=== PATIENT | female | born 1995 | race Caucasian/White ===

== ENCOUNTER 2017-06-29 18:07 | Emergency (ER) | payer MEDICAID ==
[2017-06-29 18:26] LABS: BASOPHILS 0.2 % (0-2); EOSINOPHILS 0.4 % (0-7); HEMATOCRIT 38.3 % (36.0-48.0); IMMATURE GRANULOCYTES 0.3 % (0-5); LYMPHOCYTES 29.7 % (15-50); MCH 29.7 pg (26.0-34.0); MCHC 33.9 g/dL (31.0-37.0); MCV 87.6 fL (80.0-100.0); MEAN PLATELET VOLUME 10.2 fL (7.4-10.4); MONOCYTES 6.1 % (2-11); NEUTROPHILS 63.3 % (40-80); PLATELET COUNT 239 10x3/uL (130-400); RBC 4.37 10x6/uL (4.00-5.40); RDW 12.3 % (11.5-14.5); WBC 10.7 10x3/uL (4.8-10.8)
== END 2017-06-29 20:18 | disposition home or self-care (01) ==
LOC: D.ER 18:07
PROVIDERS: Emergency Medicine
DX: O26.891 Other specified pregnancy related conditions, first trimester (principal); Z3A.09 9 weeks gestation of pregnancy; K64.8 Other hemorrhoids; K59.00 Constipation, unspecified; R11.2 Nausea with vomiting, unspecified

== ENCOUNTER 2017-07-22 17:49 | Emergency (ER) | payer MEDICAID ==
[2017-07-22 19:28] LABS: BASOPHILS 0.3 % (0-2); EOSINOPHILS 0.7 % (0-7); HEMATOCRIT 32.5 % (36.0-48.0); HEMOGLOBIN 11.3 g/dL (12-16); IMMATURE GRANULOCYTES 0.7 % (0-5); LYMPHOCYTES 23.5 % (15-50); MCH 30.1 pg (26.0-34.0); MCHC 34.8 g/dL (31.0-37.0); MCV 86.4 fL (80.0-100.0); MEAN PLATELET VOLUME 9.9 fL (7.4-10.4); MONOCYTES 9.1 % (2-11); NEUTROPHILS 65.7 % (40-80); PLATELET COUNT 193 10x3/uL (130-400); RBC 3.76 10x6/uL (4.00-5.40); RDW 12.5 % (11.5-14.5); WBC 7.5 10x3/uL (4.8-10.8)
[2017-07-22 19:41] LABS: APPEARANCE CLEAR (CLEAR); BILIRUBIN NEGATIVE (NEGATIVE); COLOR YELLOW (YELLOW); GLUCOSE NEGATIVE (NEGATIVE); KETONE MODERATE mg/dL (NEGATIVE); NITRITE NEGATIVE (NEGATIVE); PROTEIN NEGATIVE (NEGATIVE); UROBILINOGEN NORMAL (NORMAL)
[2017-07-22 19:42] LABS: BACTERIA MODERATE /hpf (NONE SEEN); EPITHELIAL CELLS 0-5 /hpf (0-5); RED CELLS - URINE OCC /hpf (0-5); WHITE CELLS - URINE 0-5 /hpf (0-5)
[2017-07-22 20:07] LABS: ALBUMIN 3.2 g/dL (3.4-5.0); ALKALINE PHOSPHATASE 65 U/L (46-116); ALT (SGPT) 11 U/L (10-68); BILIRUBIN - TOTAL 0.28 mg/dL (0.2-1.3); CALC OSMOLALITY 266 mosm/kg (275-300); CALCIUM 8.9 mg/dL (8.5-10.1); CARBON DIOXIDE 26.5 mmol/L (21.0-32.0); CHLORIDE - SERUM 101 mmol/L (98-107); CREATININE - SERUM 0.4 mg/dL (0.6-1.3); GLUCOSE 84 mg/dL (74-106); POTASSIUM - SERUM 3.4 mmol/L (3.5-5.1); PROTEIN - SERUM 6.6 g/dL (6.4-8.2); SODIUM 135 mmol/L (136-145); UREA NITROGEN 7 mg/dL (7-18); eGFR NON AFRICAN AMERICAN > 90 mL/min (90-120)
[2017-07-22 20:30] LABS: HCG - QUANTITATIVE (MATERNAL) 50712 mIU/mL
== END 2017-07-22 21:40 | disposition home or self-care (01) ==
LOC: D.ER 17:49
PROVIDERS: Family Medicine
DX: O21.9 Vomiting of pregnancy, unspecified (principal); Z3A.13 13 weeks gestation of pregnancy

== ENCOUNTER 2017-09-15 00:30 | Outpatient (CLI) | payer MEDICAID ==
[2017-09-15 01:22] LABS: APPEARANCE CLEAR (CLEAR); BILIRUBIN NEGATIVE (NEGATIVE); COLOR YELLOW (YELLOW); GLUCOSE NEGATIVE (NEGATIVE); KETONE SMALL mg/dL (NEGATIVE); NITRITE NEGATIVE (NEGATIVE); PROTEIN NEGATIVE (NEGATIVE); SPECIFIC GRAVITY 1.015 (1.005-1.020); UROBILINOGEN NORMAL (NORMAL)
[2017-09-15 01:23] LABS: BASOPHILS 0.1 % (0-2); EOSINOPHILS 0.2 % (0-7); HEMATOCRIT 30.9 % (36.0-48.0); HEMOGLOBIN 10.3 g/dL (12-16); IMMATURE GRANULOCYTES 0.5 % (0-5); LYMPHOCYTES 9.4 % (15-50); MCHC 33.3 g/dL (31.0-37.0); MCV 90.1 fL (80.0-100.0); MEAN PLATELET VOLUME 10.4 fL (7.4-10.4); MONOCYTES 5.5 % (2-11); NEUTROPHILS 84.3 % (40-80); PLATELET COUNT 206 10x3/uL (130-400); RBC 3.43 10x6/uL (4.00-5.40); RDW 13.1 % (11.5-14.5); WBC 14.3 10x3/uL (4.8-10.8)
[2017-09-15 01:35] LABS: ALKALINE PHOSPHATASE 60 U/L (46-116); ALT (SGPT) 10 U/L (10-68); AMYLASE - SERUM 38 U/L (25-115); BILIRUBIN - TOTAL 0.23 mg/dL (0.2-1.3); CALC OSMOLALITY 270 mosm/kg (275-300); CALCIUM 8.2 mg/dL (8.5-10.1); CHLORIDE - SERUM 104 mmol/L (98-107); CREATININE - SERUM 0.5 mg/dL (0.6-1.3); GLUCOSE 101 mg/dL (74-106); LIPASE 98 U/L (73-393); POTASSIUM - SERUM 3.4 mmol/L (3.5-5.1); PROTEIN - SERUM 6.5 g/dL (6.4-8.2); SODIUM 136 mmol/L (136-145); UREA NITROGEN 9 mg/dL (7-18); eGFR NON AFRICAN AMERICAN > 90 mL/min (90-120)
[2017-09-15 13:26] LABS: APPEARANCE CLEAR (CLEAR); BILIRUBIN NEGATIVE (NEGATIVE); COLOR YELLOW (YELLOW); GLUCOSE NEGATIVE (NEGATIVE); KETONE MODERATE mg/dL (NEGATIVE); NITRITE NEGATIVE (NEGATIVE); PROTEIN NEGATIVE (NEGATIVE); SPECIFIC GRAVITY 1.015 (1.005-1.020); UROBILINOGEN NORMAL (NORMAL)
[2017-09-15] MEDS ORDERED: PRENATAL COMPLE1 TAB PO (13:40)
== END 2017-09-15 16:02 | disposition home or self-care (01) ==
LOC: OBSVTIME → D.OPS 00:30 → D.ER 00:30 → D.LD 06:34 → D.ER 06:34 → OBSVTIME 06:34 → EDSTATUS 13:14 → D.OPS 16:02 → D.LD 16:02
PROVIDERS: Family Medicine; Obstetrics & Gynecology
DX: O21.8 Other vomiting complicating pregnancy (principal); R19.7 Diarrhea, unspecified

== ENCOUNTER 2017-09-22 17:46 | Outpatient (CLI) | payer MEDICAID ==
[~2017-09-22 17:46] MED LIST: PRENATAL COMPLE1 TAB PO
[2017-09-22 18:33] LABS: APPEARANCE CLEAR (CLEAR); BILIRUBIN NEGATIVE (NEGATIVE); COLOR YELLOW (YELLOW); GLUCOSE NEGATIVE (NEGATIVE); KETONE NEGATIVE (NEGATIVE); NITRITE NEGATIVE (NEGATIVE); PROTEIN NEGATIVE (NEGATIVE); UROBILINOGEN NORMAL (NORMAL)
[2017-09-22 19:55] LABS: BASOPHILS 0.2 % (0-2); EOSINOPHILS 0.3 % (0-7); HEMATOCRIT 28.8 % (36.0-48.0); HEMOGLOBIN 9.5 g/dL (12-16); IMMATURE GRANULOCYTES 0.7 % (0-5); LYMPHOCYTES 22.1 % (15-50); MCH 29.9 pg (26.0-34.0); MCV 90.6 fL (80.0-100.0); MEAN PLATELET VOLUME 10.3 fL (7.4-10.4); MONOCYTES 6.1 % (2-11); NEUTROPHILS 70.6 % (40-80); PLATELET COUNT 210 10x3/uL (130-400); RBC 3.18 10x6/uL (4.00-5.40); RDW 12.8 % (11.5-14.5); WBC 11.4 10x3/uL (4.8-10.8)
== END 2017-09-22 20:23 | disposition home or self-care (01) ==
LOC: D.LDO 17:46
PROVIDERS: Obstetrics & Gynecology
DX: O26.892 Other specified pregnancy related conditions, second trimester (principal); Z3A.22 22 weeks gestation of pregnancy; R10.9 Unspecified abdominal pain

== ENCOUNTER → 2018-01-16 22:36 | Outpatient (CLI) | payer MEDICAID ==
[~2018-01-16 22:36] MED LIST changes: +BUTALB-APAP-CA1 EACH PO; +CIPRO500 MG PO; +CLEOCIN HCL300 MG PO; +MACROBID100 MG PO; +TORADOL10 MG PO
[2018-02-01 21:21] VITALS: BMI 21.8
== END | disposition home or self-care (01) ==
LOC: D.LDO 22:36
DX: O26.893 Other specified pregnancy related conditions, third trimester (principal); Z3A.38 38 weeks gestation of pregnancy

== ENCOUNTER 2018-01-20 19:49 | Inpatient (IN) | payer MEDICAID ==
[~2018-01-20] VITALS: Ht 162.6 cm; Wt 68.2 kg
--- NOTE | ~2018-01-20 | DS ---
PATIENT:SAGRARIO HO :89 MEDICAL RECORD: [id number] DISCHARGE SUMMARY ADMISSION DATE: 01/20/18 DISCHARGE DATE: 01/23/18 DATE OF ADMISSION: 01/20/2018 DATE OF DISCHARGE: 01/23/2018 ADMISSION DIAGNOSIS: at term. DISCHARGE DIAGNOSIS: Mother delivered at term. PROCEDURE: Induction of labor with vaginal delivery. ATTENDING: Laurent Toro MD HISTORY OF PRESENT ILLNESS AND INDICATION FOR DELIVERY: Please see the H&P in the chart. SUMMARY OF HOSPITALIZATION: The patient was admitted to the hospital and underwent induction of labor with successful vaginal delivery. The patient is doing well at the time of discharge with scant to moderate lochia. The uterus was firm and below the umbilicus. Standard precautions have been reviewed and she will follow up in 6 weeks. TRANSINT:[id number] Voice Confirmation ID: [id number] DOCUMENT ID: [id number] LAURENT TORO MD at 0722 CC: [id number] DICTATION DATE: 01/23/18 07 GEAR STRAIGHTENER: 01/23/18 1016 DIS IN 01/23/18 [facility] [address] [place] [address]
--- NOTE | ~2018-01-20 | OP ---
PATIENT NAME: SAGRARIO HO MEDICAL RECORD: [id number] :89 LOCATION:[id number] ADMISSION DATE:01/20/18 SURGEON: LAURENT TORO MD DATE OF OPERATION: 01/21/2018 PREDELIVERY DIAGNOSIS: at term. POSTDELIVERY DIAGNOSIS: Mother delivered at term. PROCEDURE: Induction of labor with vaginal delivery. ATTENDING: Laurent Toro MD ANESTHETIC: Continuous lumbar epidural. FINDINGS: Viable male infant, vertex presentation, Apgars 9 and 9, weight 8 pounds 2 ounces. Placenta spontaneous and intact. Second degree laceration of the perineal body repaired with 3-0 Vicryl for the deep layers and 2-0 chromic. A 4-0 chromic used to repair first-degree laceration of the right vaginal wall. ESTIMATED BLOOD LOSS: 350 cc. DISPOSITION: Mother and recovered in the room. TRANSINT:[id number] Voice Confirmation ID: [id number] DOCUMENT ID: [id number] LAURENT TORO MD at 0723 CC: [id number] DICTATION DATE: 01/23/18 0648 CUTTER OUT: 01/23/18 1118 DIS IN 01/23/18 [facility] [address] [place] [address]
[~2018-01-20 19:49] MED LIST changes: -BUTALB-APAP-CA1 EACH PO; -CIPRO500 MG PO; -CLEOCIN HCL300 MG PO; -MACROBID100 MG PO; -TORADOL10 MG PO
[2018-01-20 21:21] VITALS: BP 122/80; Ht 162.6 cm; Wt 68.2 kg
[2018-01-20 21:53] LABS: HEMATOCRIT 32.8 % (36.0-48.0); HEMOGLOBIN 10.6 g/dL (12-16); MCH 28.3 pg (26.0-34.0); MCHC 32.3 g/dL (31.0-37.0); MCV 87.7 fL (80.0-100.0); MEAN PLATELET VOLUME 10.7 fL (7.4-10.4); RBC 3.74 10x6/uL (4.00-5.40); RDW 14.9 % (11.5-14.5); WBC 10.3 10x3/uL (4.8-10.8)
[2018-01-20 22:40] LABS: APPEARANCE CLEAR (CLEAR); BILIRUBIN NEGATIVE (NEGATIVE); COLOR YELLOW (YELLOW); GLUCOSE NEGATIVE (NEGATIVE); KETONE NEGATIVE (NEGATIVE); NITRITE NEGATIVE (NEGATIVE); PROTEIN NEGATIVE (NEGATIVE); UROBILINOGEN NORMAL (NORMAL)
[2018-01-21 19:30] VITALS: BP 110/74
[2018-01-22 03:02] VITALS: BP 93/65
[2018-01-22 06:15] LABS: RAPID PLASMA REAGIN Non Reactive (Non Reactive)
[2018-01-22 08:03] VITALS: BP 94/56
[2018-01-22 19:20] VITALS: BP 92/56
[2018-01-23 07:40] VITALS: BP 103/56
== END 2018-01-23 14:38 | disposition home or self-care (01) | DRG 775 ==
LOC: D.LD 19:49
PROVIDERS: Obstetrics & Gynecology
PROC: 10E0XZZ Delivery of Products of Conception, External Approach (ICD-10-PCS; principal; 2018-01-21)
PROC: 0KQM0ZZ Repair Perineum Muscle, Open Approach (ICD-10-PCS; 2018-01-21)
PROC: 3E033VJ Introduction of Other Hormone into Peripheral Vein, Percutaneous Approach (ICD-10-PCS; 2018-01-21)
DX: O99.824 Streptococcus B carrier state complicating childbirth (principal); Z3A.39 39 weeks gestation of pregnancy; Z37.0 Single live birth; O70.1 Second degree perineal laceration during delivery

== ENCOUNTER 2018-01-27 10:36 | Emergency (ER) | payer MEDICAID ==
[~2018-01-27] VITALS: Ht 162.6 cm; Wt 59.1 kg
[2018-01-27 11:09] VITALS: Ht 162.6 cm; Wt 59.1 kg
[2018-01-27 11:46] LABS: BASOPHILS 0.1 % (0-2); EOSINOPHILS 0.1 % (0-7); HEMATOCRIT 38.7 % (36.0-48.0); HEMOGLOBIN 12.6 g/dL (12-16); IMMATURE GRANULOCYTES 1.9 % (0-5); LYMPHOCYTES 8.8 % (15-50); MCH 28.6 pg (26.0-34.0); MCHC 32.6 g/dL (31.0-37.0); MEAN PLATELET VOLUME 9.5 fL (7.4-10.4); MONOCYTES 3.8 % (2-11); NEUTROPHILS 85.3 % (40-80); RDW 14.4 % (11.5-14.5)
[2018-01-27 11:47] LABS: PLATELET COUNT 327 10x3/uL (130-400)
[2018-01-27 13:45] LABS: ALBUMIN 3.4 g/dL (3.4-5.0); ALKALINE PHOSPHATASE 187 U/L (46-116); ALT (SGPT) 26 U/L (10-68); BILIRUBIN - TOTAL 0.28 mg/dL (0.2-1.3); CALC OSMOLALITY 279 mosm/kg (275-300); CALCIUM 9.7 mg/dL (8.5-10.1); CHLORIDE - SERUM 104 mmol/L (98-107); CREATININE - SERUM 0.5 mg/dL (0.6-1.3); GLUCOSE 91 mg/dL (74-106); PROTEIN - SERUM 8.2 g/dL (6.4-8.2); SODIUM 141 mmol/L (136-145); UREA NITROGEN 11 mg/dL (7-18); eGFR NON AFRICAN AMERICAN > 90 mL/min (90-120)
[2018-01-27 15:51] LABS: APPEARANCE HAZY (CLEAR); BILIRUBIN NEGATIVE (NEGATIVE); COLOR YELLOW (YELLOW); GLUCOSE NEGATIVE (NEGATIVE); KETONE NEGATIVE (NEGATIVE); NITRITE NEGATIVE (NEGATIVE); PROTEIN NEGATIVE (NEGATIVE); SPECIFIC GRAVITY 1.005 (1.005-1.020); UROBILINOGEN NORMAL (NORMAL)
[2018-01-27 15:53] LABS: BACTERIA FEW /hpf (NONE SEEN); EPITHELIAL CELLS 0-5 /hpf (0-5)
[2018-01-27 15:55] LABS: RED CELLS - URINE 25-50 /hpf (0-5)
[2018-01-27] MEDS ORDERED: CLEOCIN HCL300 MG PO (18:31)
[2018-01-27] MEDS ORDERED: TORADOL10 MG PO (18:31)
[2018-01-27 19:55] VITALS: BP 103/81
== END 2018-01-27 20:09 | disposition home or self-care (01) ==
LOC: D.ER 10:36
PROVIDERS: Family Medicine; Internal Medicine Rheumatology
DX: N80.0 Endometriosis of uterus (principal); R51 Headache; R10.9 Unspecified abdominal pain; R42 Dizziness and giddiness

== ENCOUNTER 2018-01-30 14:31 | Inpatient (IN) | payer MEDICAID ==
[~2018-01-30] VITALS: Ht 162.6 cm; Wt 57.7 kg
--- NOTE | ~2018-01-30 | DS ---
PATIENT:SAGRARIO HO :89 MEDICAL RECORD: [id number] DISCHARGE SUMMARY ADMISSION DATE: 01/30/18 DISCHARGE DATE: 02/01/18 DATE OF ADMISSION: 01/30/2018 DATE OF DISCHARGE: 02/01/2018 ADMISSION DIAGNOSIS: endomyometritis. DISCHARGE DIAGNOSIS: endomyometritis. ATTENDING: Laurent Toro MD INDICATION FOR ADMISSION: Please see the H&P in the chart. SUMMARY OF HOSPITALIZATION: The patient was admitted and begun on triple antibiotics. The patient has remained afebrile. The uterine tenderness has decreased over time. The patient has been given Cipro and Flagyl to continue for the next 7 days. Side effects of antibiotics have been discussed. The patient also received a prescription of Diflucan in the event she develops yeast infection after the broad-spectrum antibiotics that she has been given. I have also encouraged probiotics. Follow up in one week at the [facility]. TRANSINT:[id number] Voice Confirmation ID: [id number] DOCUMENT ID: [id number] LAURENT TORO MD at 0932 CC: [id number] DICTATION DATE: 02/01/18 1008 COMMUNICATIONS CONSULTANT: 02/01/18 1847 DIS IN 02/01/18 [facility] [address] [place] [address]
[~2018-01-30 14:31] MED LIST changes: +CLEOCIN HCL300 MG PO; +TORADOL10 MG PO
[2018-01-30 18:20] LABS: BASOPHILS 0.4 % (0-2); EOSINOPHILS 0.4 % (0-7); HEMATOCRIT 38.3 % (36.0-48.0); HEMOGLOBIN 12.4 g/dL (12-16); IMMATURE GRANULOCYTES 1.3 % (0-5); LYMPHOCYTES 20.1 % (15-50); MCH 28.1 pg (26.0-34.0); MCHC 32.4 g/dL (31.0-37.0); MCV 86.8 fL (80.0-100.0); MEAN PLATELET VOLUME 9.5 fL (7.4-10.4); MONOCYTES 5.8 % (2-11); PLATELET COUNT 340 10x3/uL (130-400); RBC 4.41 10x6/uL (4.00-5.40); RDW 14.1 % (11.5-14.5); WBC 13.5 10x3/uL (4.8-10.8)
[2018-01-30 18:50] LABS: ALBUMIN 3.5 g/dL (3.4-5.0); ALKALINE PHOSPHATASE 162 U/L (46-116); ALT (SGPT) 17 U/L (10-68); BILIRUBIN - TOTAL 0.31 mg/dL (0.2-1.3); CALC OSMOLALITY 282 mosm/kg (275-300); CALCIUM 9.3 mg/dL (8.5-10.1); CARBON DIOXIDE 28.4 mmol/L (21.0-32.0); CHLORIDE - SERUM 103 mmol/L (98-107); CREATININE - SERUM 0.6 mg/dL (0.6-1.3); GLUCOSE 78 mg/dL (74-106); POTASSIUM - SERUM 4.3 mmol/L (3.5-5.1); PROTEIN - SERUM 7.4 g/dL (6.4-8.2); SODIUM 142 mmol/L (136-145); UREA NITROGEN 16 mg/dL (7-18); eGFR NON AFRICAN AMERICAN > 90 mL/min (90-120)
[2018-01-30 19:13] LABS: APPEARANCE CLEAR (CLEAR); COLOR YELLOW (YELLOW)
[2018-01-30 19:14] LABS: BILIRUBIN NEGATIVE (NEGATIVE); GLUCOSE NEGATIVE (NEGATIVE); KETONE NEGATIVE (NEGATIVE); NITRITE NEGATIVE (NEGATIVE); PROTEIN NEGATIVE (NEGATIVE); UROBILINOGEN NORMAL (NORMAL)
[2018-01-30 19:15] LABS: BACTERIA FEW /hpf (NONE SEEN); EPITHELIAL CELLS 0-5 /hpf (0-5)
[2018-01-30 20:42] VITALS: BP 97/66
[2018-01-31 00:28] VITALS: BP 98/64
[2018-01-31 01:26] VITALS: BP 97/66; Ht 162.6 cm; Wt 57.7 kg
[2018-01-31 04:10] VITALS: BP 104/68
[2018-01-31 08:30] VITALS: BP 97/60
[2018-01-31 12:35] VITALS: BP 99/64
[2018-01-31 22:18] VITALS: BP 107/77
[2018-02-01 04:10] VITALS: BP 124/74
[2018-02-01 07:52] VITALS: BP 98/55
[2018-02-01] MEDS ORDERED: CIPRO500 MG PO (21:33)
[2018-02-02] MEDS ORDERED: MACROBID100 MG PO (01:02)
[2018-02-02] MEDS ORDERED: BUTALB-APAP-CA1 EACH PO (01:02)
== END 2018-02-01 13:13 | disposition home or self-care (01) | DRG 776 ==
LOC: D.SDCHOLD 14:31 → D.MS 17:12
PROVIDERS: Obstetrics & Gynecology
DX: O86.12 Endometritis following delivery (principal); N71.9 Inflammatory disease of uterus, unspecified

== ENCOUNTER 2018-02-01 21:12 | Emergency (ER) | payer MEDICAID ==
[~2018-02-01] VITALS: Ht 162.6 cm; Wt 57.7 kg
[2018-02-01 21:21] VITALS: Ht 162.6 cm; Wt 57.7 kg
[2018-02-01] MEDS ORDERED: CIPRO500 MG PO (21:33)
[2018-02-01 23:35] LABS: BASOPHILS 0.4 % (0-2); EOSINOPHILS 0.8 % (0-7); HEMATOCRIT 36.8 % (36.0-48.0); IMMATURE GRANULOCYTES 0.9 % (0-5); LYMPHOCYTES 24.2 % (15-50); MCH 28.1 pg (26.0-34.0); MCHC 32.6 g/dL (31.0-37.0); MCV 86.2 fL (80.0-100.0); MEAN PLATELET VOLUME 9.8 fL (7.4-10.4); MONOCYTES 5.7 % (2-11); PLATELET COUNT 327 10x3/uL (130-400); RBC 4.27 10x6/uL (4.00-5.40); RDW 14.1 % (11.5-14.5); WBC 10.7 10x3/uL (4.8-10.8)
[2018-02-01 23:36] LABS: APPEARANCE HAZY (CLEAR); BILIRUBIN NEGATIVE (NEGATIVE); COLOR YELLOW (YELLOW); GLUCOSE NEGATIVE (NEGATIVE); KETONE NEGATIVE (NEGATIVE); NITRITE NEGATIVE (NEGATIVE); PROTEIN NEGATIVE (NEGATIVE); UROBILINOGEN NORMAL (NORMAL)
[2018-02-01 23:48] LABS: BACTERIA FEW /hpf (NONE SEEN); EPITHELIAL CELLS 0-5 /hpf (0-5); RED CELLS - URINE 0-5 /hpf (0-5)
[2018-02-01 23:49] LABS: HYALINE CAST RARE /lpf (NONE SEEN); TALC POWDER CRYSTALS OCC /hpf (NONE SEEN)
[2018-02-01 23:52] LABS: ALBUMIN 3.4 g/dL (3.4-5.0); ALKALINE PHOSPHATASE 138 U/L (46-116); ALT (SGPT) 21 U/L (10-68); BILIRUBIN - TOTAL 0.26 mg/dL (0.2-1.3); CALC OSMOLALITY 282 mosm/kg (275-300); CHLORIDE - SERUM 104 mmol/L (98-107); CREATININE - SERUM 0.7 mg/dL (0.6-1.3); GLUCOSE 89 mg/dL (74-106); POTASSIUM - SERUM 3.6 mmol/L (3.5-5.1); PROTEIN - SERUM 7.5 g/dL (6.4-8.2); SODIUM 143 mmol/L (136-145); UREA NITROGEN 11 mg/dL (7-18); eGFR NON AFRICAN AMERICAN > 90 mL/min (90-120)
[2018-02-02] MEDS ORDERED: MACROBID100 MG PO (01:02)
[2018-02-02] MEDS ORDERED: BUTALB-APAP-CA1 EACH PO (01:02)
[2018-02-02 02:35] VITALS: BP 112/72
== END 2018-02-02 02:37 | disposition home or self-care (01) ==
LOC: D.ER 21:12
PROVIDERS: Emergency Medicine
DX: R51 Headache (principal); N39.0 Urinary tract infection, site not specified